=== PATIENT | male | born 1965 | race Caucasian/White ===

== ENCOUNTER 2020-04-30 16:17 | Observation (INO) | payer BC ==
[2020-04-30 17:28] LABS: BASO % 0.8 % (0-2.0); EOS % 3.8 % (0-4.5); HEMATOCRIT 44.7 % (35.4-49); HEMOGLOBIN 15.2 GM/dl (11.7-16.9); LYMPH % 28.5 % (8-40); MCH 30.2 pg (25.7-33.7); MEAN CELL VOLUME 88.8 fl (80-96); MEAN PLT VOLUME 8.9 fl (7.5-11.1); MONO % 10.4 % (3.8-10.2); NEUT % 56.5 % (42.8-82.8); PLATELET COUNT 401 K/MM3 (134-434); RBC 5.03 M/mm3 (4.00-5.60); RDW 11.9 % (11.9-15.9); WHITE BLOOD COUNT 8.3 K/mm3 (4.0-10.8)
[2020-04-30 17:30] LABS: ALBUMIN 4.7 g/dl (3.4-5.0); BILIRUBIN,TOTAL 0.7 mg/dl (0.2-1); POTASSIUM 3.8 mmol/L (3.5-5.1); TOT PROT 7.5 g/dl (6.4-8.2)
[2020-04-30] MEDS ORDERED: ASPIRIN 325 MG ENTERIC COATED TABLET (FP) PO ONE (18:16)
[2020-04-30] MEDS ORDERED: ATORVASTATIN CA 40 MG TABLET (FP) PO ONE (18:16)
[2020-04-30] MEDS ORDERED: ATORVASTATIN CA 20 MG TABLET (FP) ONE (18:52)
[2020-04-30] MEDS ORDERED: ASPIRIN 325 MG TABLET ONE ×2 (18:52→18:55)
[2020-04-30 22:06] VITALS: BMI 33.5
[2020-04-30] MEDS ORDERED: MELATONIN 5 MG TABLETS PO ONE (23:41)
[2020-05-01 06:25] VITALS: BP 148/73; TEMP 97.6
[2020-05-01 07:40] LABS: BASO % 1.2 % (0-2.0); EOS % 4.9 % (0-4.5); HEMATOCRIT 41.7 % (35.4-49); HEMOGLOBIN 14.2 GM/dl (11.7-16.9); LYMPH % 28.4 % (8-40); MCH 30.1 pg (25.7-33.7); MCHC 34.1 g/dl (32.0-35.9); MEAN CELL VOLUME 88.3 fl (80-96); MEAN PLT VOLUME 8.9 fl (7.5-11.1); MONO % 9.7 % (3.8-10.2); NEUT % 55.8 % (42.8-82.8); PLATELET COUNT 388 K/MM3 (134-434); RBC 4.72 M/mm3 (4.00-5.60); WHITE BLOOD COUNT 7.2 K/mm3 (4.0-10.8)
[2020-05-01 07:53] LABS: CALCIUM 9.4 mg/dl (8.5-10); CREATININE 0.9 mg/dl (0.55-1.3); MAGNESIUM 1.9 mg/dL (1.8-2.4); POTASSIUM 4.1 mmol/L (3.5-5.1)
[2020-05-01] MEDS ORDERED: ASPIRIN 81 MG CHEWABLE TABLETS PO SCH (10:00)
[2020-05-01 10:52] VITALS: PULSE 93
[2020-05-02] MEDS ORDERED: PATIENT'S OWN MEDICATION (NON-FORMULARY) (Losartan/Hydrochlorothiazide [Losartan-Hctz 100- PO SCH (10:00)
[2020-05-02] MEDS ORDERED: LOSARTAN 50MG/HCTZ 12.5MG 1 TAB PO SCH (10:00)
== END 2020-05-01 12:37 | disposition home or self-care (01) ==
LOC: FER 16:17 → UNDOADMOB 19:23 → FM/S 19:23 → INTOOBSV 19:23 → FM/S 19:38
PROVIDERS: ATTEND Registered Nurse Emergency
DX: R07.9 Chest pain, unspecified (principal); R42 Dizziness and giddiness; Z86.19 Personal history of other infectious and parasitic diseases; J45.909 Unspecified asthma, uncomplicated; R06.02 Shortness of breath; R06.00 Dyspnea, unspecified; I10 Essential (primary) hypertension; J70.8 Respiratory conditions due to other specified external agents; Z88.0 Allergy status to penicillin; E66.9 Obesity, unspecified; Z68.33 Body mass index [BMI] 33.0-33.9, adult
CPT/HCPCS: 36415; 71045-TC-FY; 80048; 80053; 80061; 83735; 84443; 84484; 85025; 93005; 99285-25; C9803; G0378; U0003